=== PATIENT | male | born 1955 | race Caucasian/White ===

== ENCOUNTER 2019-11-01 17:35 | Emergency (ER) | payer OTHER, MEDICAID ==
[~2019-11-01] VITALS: Ht 170.2 cm; Wt 63.5 kg
[2019-11-01] MEDS ORDERED: BUSPIRONE HCL10 MG PO (17:54)
[2019-11-01] MEDS ORDERED: ASA81BEC PO (17:54)
[2019-11-01] MEDS ORDERED: LIPITOR10 MG PO (17:54)
[2019-11-01] MEDS ORDERED: HALDOL 0.5 MG0.5 MG PO (17:55)
[2019-11-01] MEDS ORDERED: SYNTHROID25 MC1 PO (17:56)
[2019-11-01] MEDS ORDERED: DILANTIN100 MG PO (17:58)
[2019-11-01] MEDS ORDERED: REMERON15 M2 PO (17:58)
[2019-11-01] MEDS ORDERED: ZONEGRAN100 MG PO (17:59)
[2019-11-01] MEDS ORDERED: VITAMIN D3400 UNI2 PO (17:59)
[2019-11-01 19:00] LABS: URINE BILIRUBIN NEGATIVE (Negative); URINE BLOOD NEGATIVE (Negative); URINE CLARITY CLEAR; URINE COLOR YELLOW; URINE GLUCOSE-RANDOM* NEGATIVE (Negative); URINE KETONES NEGATIVE (Negative); URINE LEUKOCYTES-REFLEX NEGATIVE (Negative); URINE NITRITE-REFLEX NEGATIVE (Negative); URINE PROTEIN (DIPSTICK) NEGATIVE (Negative); URINE UROBILINOGEN 0.2 E.U./dl (0.2-1.0)
[2019-11-01 19:09] LABS: AMP/METHAMP Negative (Negative); BARBITURATES Negative (Negative); BENZODIAZEPINES Negative (Negative); COCAINE Negative (Negative); METHADONE Negative (Negative); OPIATES Negative (Negative); PCP Negative (Negative)
[2019-11-01 19:32] LABS: ABSOLUTE NEUTROPHILS 5.5 thou/uL (1.4-8.2); BASOPHILS 0.5 % (0.0-2.0); EOSINOPHILS 1.9 % (0.0-3.0); HEMATOCRIT 40.4 % (42.0-52.0); HEMOGLOBIN 13.8 gm/dL (14.0-18.0); LYMPHOCYTES 34.5 % (24.0-44.0); MCH 32.5 pg (26.0-34.0); MCV 95.4 fL (80.0-100.0); MONOCYTES 6.7 % (1.0-8.0); PLATELET COUNT 196 thou/uL (150-400); POLYS 56.4 % (36.0-66.0); RBC 4.24 mil/uL (4.50-6.00); RDW 13.1 % (10.5-14.5); WBC 9.8 thou/uL (4.0-11.0)
[2019-11-01 19:44] LABS: CALCIUM 9.5 mg/dL (8.5-10.1); CREATININE 0.8 mg/dL (0.7-1.3); POTASSIUM 4.6 mmol/L (3.5-5.1)
[2019-11-01 19:50] LABS: TOTAL BILIRUBIN 0.1 mg/dL (<0.1-1.0)
[2019-11-01 20:44] LABS: SALICYLATE 3.6 mg/dL (2.8-20.0)
[2019-11-01 23:00] VITALS: BP 122/56
--- NOTE | 2019-11-03 17:13 | EKG ---
[address] [address] ELECTROCARDIOGRAM REPORT Name: PIPE KITCHEN Room #: [facility]P [id number] Admission: 11/01/19 Attend Phys: Discharge: 11/01/19 Date of : 55 Report #: [id number] THIS REPORT FOR: //name// [facility] ED Test Date: 2019-11-01 Test Time: 18:38:30 Pat Name: PIPE KITCHEN Department: Room: Gender: Faculty Support Coordinator: LEIGH : 1955 Requested By: Vadim Law Order Number: [id number] MD: Duc Reynolds Measurements Intervals Lawson Rate: 46 P: 79 FL: 148 QRS: 72 QRSD: 95 T: 81 QT: 464 QTc: 406 Interpretive Statements Sinus bradycardia No previous ECG available for comparison Electronically Signed On 11-03-2019 17:12:17 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
== END 2019-11-01 23:01 | disposition home or self-care (01) ==
LOC: ER 17:35
PROVIDERS: Emergency Medicine; Physician Assistant
DX: F43.21 Adjustment disorder with depressed mood (principal); F03.90 Unspecified dementia, unspecified severity, without behavioral disturbance, psychotic disturbance, mood disturbance, and anxiety; E03.9 Hypothyroidism, unspecified; E78.5 Hyperlipidemia, unspecified; J44.9 Chronic obstructive pulmonary disease, unspecified; F20.9 Schizophrenia, unspecified; F17.210 Nicotine dependence, cigarettes, uncomplicated

== ENCOUNTER 2019-11-05 15:10 | Emergency (ER) | payer OTHER, MEDICAID ==
[~2019-11-05] VITALS: Ht 170.2 cm; Wt 65.8 kg
[~2019-11-05 15:10] MED LIST: ASA81BEC PO; BUSPIRONE HCL10 MG PO; DILANTIN100 MG PO; HALDOL 0.5 MG0.5 MG PO; LIPITOR10 MG PO; REMERON15 M2 PO; SYNTHROID25 MC1 PO; VITAMIN D3400 UNI2 PO; ZONEGRAN100 MG PO
[2019-11-05 16:08] LABS: HEMATOCRIT 34.9 % (42.0-52.0); HEMOGLOBIN 12.1 gm/dL (14.0-18.0); MCH 32.8 pg (26.0-34.0); MCHC 34.8 g/dL (28.0-37.0); MCV 94.2 fL (80.0-100.0); RBC 3.7 mil/uL (4.50-6.00); RDW 13.1 % (10.5-14.5); WBC 8.9 thou/uL (4.0-11.0)
[2019-11-05 16:15] LABS: CALCIUM 9.1 mg/dL (8.5-10.1); CREATININE 0.8 mg/dL (0.7-1.3); POTASSIUM 3.7 mmol/L (3.5-5.1)
[2019-11-05] MEDS ORDERED: NORCO 5-325 TA1 EAC1 PO ×2 (16:31→16:39)
[2019-11-05 17:56] VITALS: BP 126/65
== END 2019-11-05 17:57 ==
LOC: ER 15:10
PROVIDERS: Emergency Medicine
DX: S82.891A Other fracture of right lower leg, initial encounter for closed fracture (principal); F17.210 Nicotine dependence, cigarettes, uncomplicated; W19.XXXA Unspecified fall, initial encounter; Y93.89 Activity, other specified; Y92.89 Other specified places as the place of occurrence of the external cause; Y99.8 Other external cause status